=== PATIENT | female | born 1955 | race Caucasian/White ===

== ENCOUNTER 2022-04-16 19:33 | Emergency (ER) | payer OTHER, MEDICARE ==
[2022-04-16] MEDS ORDERED: HYDROcodone/Acetaminophen 5/325 mg Tablet ONE (21:05)
[2022-04-16] MEDS ORDERED: Ibuprofen 800 MG TAB ONE (21:06)
[2022-04-16] MEDS ORDERED: Bacitracin 1 PK ONE (22:58)
== END 2022-04-16 23:25 | disposition home or self-care (01) ==
LOC: MADERS 19:33
DX: S81.812A Laceration without foreign body, left lower leg, initial encounter (principal); S93.401A Sprain of unspecified ligament of right ankle, initial encounter; J45.901 Unspecified asthma with (acute) exacerbation; F17.210 Nicotine dependence, cigarettes, uncomplicated; V89.2XXA Person injured in unspecified motor-vehicle accident, traffic, initial encounter
CPT/HCPCS: 12002; 71045

== ENCOUNTER 2024-03-23 15:04 | Emergency (ER) | payer MEDICARE | END 2024-03-23 17:55 | disposition home or self-care (01) | LOC: MADERS 15:04 | DX: S62.317A Displaced fracture of base of fifth metacarpal bone, left hand, initial encounter for closed fracture (principal); F17.210 Nicotine dependence, cigarettes, uncomplicated; W19.XXXA Unspecified fall, initial encounter | CPT/HCPCS: 29125; 99283 ==